=== PATIENT | male | born 1965 | race Caucasian/White ===

== ENCOUNTER 2023-05-20 05:40 | Day surgery (SDC) | payer OTHER ==
[2023-05-15 10:52] VITALS: BMI 25.0
[2023-05-20] MEDS ORDERED: Bupivacaine PF 0.5% 30 ML VIAL ONE (06:19)
[2023-05-20] MEDS ORDERED: Thrombin 5000 UNITS/5 ML VIAL ONE (06:19)
[2023-05-20] MEDS ORDERED: EPINEPHrine 1 MG/ML AMP ONE (06:19)
[2023-05-20] MEDS ORDERED: fentaNYL 50 mcg/mL 1 mL Vial ONE ×6 (06:43→10:46)
[2023-05-20] MEDS ORDERED: fentaNYL PF 100 MCG/2 ML SYRINGE ONE (06:44)
[2023-05-20] MEDS ORDERED: SUGAMMADEX SODIUM 200 MG/2 ML VIAL ONE (06:44)
[2023-05-20] MEDS ORDERED: LevoFLOXacin 500 mg/D5W 100 ML BAG ONE (06:58)
[2023-05-20] MEDS ORDERED: Clindamycin/D5W 900 mg/50 ml Premix Bag ONE (06:58)
[2023-05-20] MEDS ORDERED: ePHEDrine Sulfate 50 MG/10 ML VIAL ONE (07:14)
[2023-05-20] MEDS ORDERED: Lidocaine 1% PF 5 ML VIAL ONE (07:14)
[2023-05-20] MEDS ORDERED: Rocuronium Bromide 10 MG/ML (10ML VIAL) ONE (07:14)
[2023-05-20] MEDS ORDERED: Ondansetron PF 4 MG/2 ML Vial ONE (07:14)
[2023-05-20] MEDS ORDERED: Ketorolac Tromethamine 30 MG/ML VIAL ONE (07:14)
[2023-05-20] MEDS ORDERED: PHENYLEPHRINE-NS 100 MCG/ML 10 ML SYRINGE ONE (07:14)
[2023-05-20] MEDS ORDERED: Tamsulosin HCl 0.4 MG CAP ONE (11:02)
[2023-05-20] MEDS ORDERED: Cyclobenzaprine 10 MG TAB ONE (12:02)
== END 2023-05-20 12:45 | disposition home or self-care (01) ==
LOC: SDC 05:40
PROVIDERS: ATTEND Neurological Surgery
PROC: 01NB0ZZ Release Lumbar Nerve, Open Approach (ICD-10-PCS; principal; 2023-05-20)
DX: M48.062 Spinal stenosis, lumbar region with neurogenic claudication (principal); M54.16 Radiculopathy, lumbar region; E78.5 Hyperlipidemia, unspecified; F32.A Depression, unspecified; F41.9 Anxiety disorder, unspecified; G89.29 Other chronic pain; Z79.899 Other long term (current) drug therapy
CPT/HCPCS: 63047; 63048 ×2; C1889; J3010; J0171; J1885; J1956; J2405; J3490; S0020